=== PATIENT | female | born 1995 | race Caucasian/White ===

== ENCOUNTER → 2016-10-20 | Outpatient (CLI) | payer OTHER ==
--- NOTE | 2016-10-20 11:48 | DI ---
Indication: ITS.REASON: S89.91XA INJURY MRI KNEE RIGHT W/O CONTRAST: Comparison: None Technique: T1 and T2-weighted images with axial, coronal and sagittal image planes provided. Findings: Patient shows a suprapatellar joint effusion. No marked malalignment of the patella seen. Patellar tendon is intact. Anterior patellar soft tissues are unremarkable. Patient demonstrates just minimal fluid within the knee joint. The patient shows most prominent findings involving the midportion of the lateral femoral condyle where there is chondromalacia and edematous changes extending up into the bony surface with some mild osteonecrosis suspected. Potential injury to the central portion of the meniscus is also is suspected at this region. The posterior aspect seemed intact. Medial meniscus shows only minimal intrasubstance signal. Patient demonstrates intrasubstance signal in the anterior cruciate but its distal seems attached. Posterior cruciates intact. The medial and lateral collateral ligaments are intact. Somewhat more fluid is seen on the lateral side and there is some lateral collateral bursitis suspected. Impression: 1. Suprapatellar joint effusion and minimal fluid about the knee joint. 2. Most prominent finding is bony bruising and edematous changes most pronounced about the lateral femoral condyle toward its central portion. Some chondral thinning is identified there is some potential injury to the meniscus in the central portion of the lateral side. Couple images showed some motion artifact and this might contribute to this finding. 3. Although minimal anterior cruciate signal is seen it seems attached as does the posterior cruciate and medial lateral collateral ligaments although as mentioned, there seems to be mild lateral collateral bursitis. .
== END ==
LOC: IMA 06:56
PROVIDERS: ATTEND Family Medicine Sports Medicine
DX: S83.511A Sprain of anterior cruciate ligament of right knee, initial encounter (principal); S80.01XA Contusion of right knee, initial encounter; X58.XXXA Exposure to other specified factors, initial encounter; Y93.81 Activity, refereeing a sports activity; Y92.214 College as the place of occurrence of the external cause; Y99.0 Civilian activity done for income or pay; M25.461 Effusion, right knee